=== PATIENT | female | born 1960 | race Two or more races ===

== ENCOUNTER 2024-02-02 13:46 | Emergency (ER) | payer OTHER ==
[2024-02-02 14:04] VITALS: BP 122/78; PULSE 67; RESP 18; TEMP 97.8; BMI 28.3
[2024-02-02] MEDS: SODIUM CHLORIDE 1,000 ML IV ONE (15:10)
[2024-02-02] MEDS ORDERED: MECLIZINE HCL 25 MG TABLET (FP) ONE (15:19)
[2024-02-02] MEDS ORDERED: METOCLOPRAMIDE HCL INJECTION 10 MG/2 ML VIAL ONE (15:19)
[2024-02-02] MEDS: MECLIZINE HCL 25 MG TABLET (FP) PO ONE (15:20)
[2024-02-02] MEDS: METOCLOPRAMIDE HCL INJECTION 10 MG/2 ML VIAL IVPUSH ONE (15:25)
[2024-02-02 15:36] LABS: HEMATOCRIT 41.7 % (32.4-45.2); HEMOGLOBIN 13.1 G/dL (10.7-15.3); MCH 29.3 pg (25.7-33.7); MCHC 31.4 g/dl (32.0-36.0); MEAN CELL VOLUME 93.3 fl (80-96); MEAN PLT VOLUME 8.5 fl (7.5-11.1); PLATELET COUNT 338.1 10^3/uL (134-434); RBC 4.47 10^6/uL (3.60-5.2); RDW 14.8 % (11.6-15.6); WHITE BLOOD COUNT 4.1 10^3/uL (4.0-10.8)
[2024-02-02 15:40] LABS: PLATELET ESTIMATE ADEQUATE
[2024-02-02 16:29] LABS: ALBUMIN 4.7 g/dl (3.4-5.0); BILIRUBIN,TOTAL 0.4 mg/dl (0.2-1); CALCIUM 9.9 mg/dl (8.5-10.1); CREATININE 0.6 mg/dl (0.6-1.3); TOT PROT 7.4 g/dl (6.4-8.2)
[2024-02-02 16:30] LABS: POTASSIUM 4.9 mmol/L (3.5-5.1)
== END 2024-02-02 17:35 | disposition home or self-care (01) ==
LOC: FER 13:46
PROC: 3E033GC Introduction of Other Therapeutic Substance into Peripheral Vein, Percutaneous Approach (ICD-10-PCS; principal; 2024-02-02)
PROC: 3E0337Z Introduction of Electrolytic and Water Balance Substance into Peripheral Vein, Percutaneous Approach (ICD-10-PCS; 2024-02-02)
DX: R42 Dizziness and giddiness (principal); R11.2 Nausea with vomiting, unspecified
CPT/HCPCS: 36415; 80053; 85027; 93005; 93010; 99284-25